=== PATIENT | female | born 2000 | race American Indian/Alaskan Native ===

== ENCOUNTER 2023-11-07 11:10 | Observation (INO) | payer OTHER | END 2023-11-07 12:30 | disposition home or self-care (01) | LOC: LDRP 11:10 | PROVIDERS: ADMIT Obstetrics & Gynecology; ATTEND Obstetrics & Gynecology | DX: O26.853 Spotting complicating pregnancy, third trimester (principal); O62.9 Abnormality of forces of labor, unspecified; Z3A.32 32 weeks gestation of pregnancy | CPT/HCPCS: 59025; 81002; 94760; G0378 ==

== ENCOUNTER 2023-11-07 13:47 | Observation (INO) | payer OTHER | END 2023-11-07 16:40 | disposition home or self-care (01) | LOC: LDRP 13:47 → UNDOADMOB 13:47 → LDRP 14:33 → UNDODISOB 16:40 | PROVIDERS: ADMIT Obstetrics & Gynecology; ATTEND Obstetrics & Gynecology | DX: O36.8130 Decreased fetal movements, third trimester, not applicable or unspecified (principal); O26.853 Spotting complicating pregnancy, third trimester; O62.9 Abnormality of forces of labor, unspecified; Z3A.32 32 weeks gestation of pregnancy | CPT/HCPCS: 59025; 76805; 76818; 81002; 94760; G0378 ==